=== PATIENT | male | born 1965 | race African-American/Black ===

== ENCOUNTER 2017-11-25 23:57 | Emergency (ER) | payer OTHER ==
[2017-11-26] MEDS ORDERED: Ketorolac INJ* 30 MG/ML 1 ML VIAL IV PUSH ONE (00:30)
[2017-11-26] MEDS ORDERED: oxyCODONE/Acetamin 5/325 MG* TAB PO ONE (00:31)
--- NOTE | 2017-11-26 00:36 | ED ---
Shortness of Breath - HPI Summary HPI Summary: This patient is a 52 year old M presenting to [facility] accompanied by corrections officers with a chief complaint of SOB since 1999. He endorses left shoulder pain, cramping left-neck pain, cramping back pain (makes sitting up difficult), and LUE numbness. He denies CP. He notes the sx have improved since onset. PMHx HTN, anxiety, depression. He denies SHx. - History of Current Complaint Time Seen by Provider: 11/26/17 00:06 Hx Obtained From: Patient Onset/Duration: Sudden Onset, Lasting Hours, Still Present Timing: Constant Current Severity: Mild Dyspnea At: Rest Aggrevating Factors: Nothing Alleviating Factors: Nothing Associated Signs & Symptoms: Negative Related History: Obesity - Allergy/Home Medications Allergies/Adverse Reactions: Allergies Allergy/AdvReac Type Severity Reaction Status Date / Time No Known Allergies Allergy Verified 11/26/17 00:25 Home Medications: Home Medications Hydrochlorothiazide TAB* 25 mg PO DAILY 11/26/17 [History Confirmed 11/26/17] Lipitor 20 MG* 20 mg PO DAILY 11/26/17 [History Confirmed 11/26/17] Lisinopril TAB* 40 mg PO DAILY 11/26/17 [History Confirmed 11/26/17] Lopressor TAB* 50 mg PO DAILY 11/26/17 [History Confirmed 11/26/17] Plaquenil TAB* 11/26/17 [History] Ranitidine TAB (NF) 150 mg PO QPM 11/26/17 [History Confirmed 11/26/17] PMH/Surg Hx/FS Hx/Imm Hx Cardiovascular History: Reports: Hx Hypertension Denies: Hx Pacemaker/ICD GI History: Denies: Hx Ileostomy Sensory History: Denies: Hx Legally Blind, Hx Deafness Opthamlomology History: Denies: Hx Legally Blind EENT History: Denies: Hx Deafness Psychiatric History: Reports: Hx Anxiety, Hx Depression Infectious Disease History: No Infectious Disease History: Denies: Traveled Outside the [place] in Last 30 Days - Family History Known Family History: Negative: Blood Disorder - Social History Occupation: Unemployed Lives: Dormitory/Roommates Alcohol Use: None Substance Use Type: Reports: None Substance Use Comment - Amount & Last Used: pt denies Smoking Status (MU): Heavy Every Day Tobacco Smoker Review of Systems Negative: Fever Positive: Shortness Of Breath Positive: no symptoms reported Positive: Arthralgia - left shoulder, left neck, Myalgia - back, Decreased ROM - back cramping causes difficulty in sitting up Positive: Numbness - LUE All Other Systems Reviewed And Are Negative: Yes Physical Exam - Summary Physical Exam Summary: VITAL SIGNS: Reviewed. GENERAL: Patient is a well-developed and nourished male who is lying comfortable in the stretcher. Patient is not in any acute respiratory distress. HEAD AND FACE: No signs of trauma. No ecchymosis, hematomas or skull depressions. No sinus tenderness. EYES: PERRLA, EOMI x 2, No injected conjunctiva, no nystagmus. EARS: Hearing grossly intact. Ear canals and tympanic membranes are within normal limits. MOUTH: Oropharynx within normal limits. NECK: Supple, trachea is midline, no adenopathy, no JVD, no carotid bruit, no c- spine tenderness, neck with full ROM. CHEST: Symmetric, no tenderness at palpation LUNGS: Clear to auscultation bilaterally. No wheezing or crackles. CVS: Regular rate and rhythm, S1 and S2 present, no murmurs or gallops appreciated. ABDOMEN: Soft, non-tender. No signs of distention. No rebound no guarding, and no masses palpated. Bowel sounds are normal. EXTREMITIES: FROM in all major joints, no edema, no cyanosis or clubbing. NEURO: Alert and oriented x 3. No acute neurological deficits. Speech is normal and follows commands. SKIN: Dry and warm Triage Information Reviewed: Yes Vital Signs On Initial Exam: Initial Vitals Temp Pulse Resp BP Pulse Ox 97.2 F 78 16 139/79 100 11/26/17 00:05 11/26/17 00:05 11/26/17 00:05 11/26/17 00:05 11/26/17 00:05 Vital Signs Reviewed: Yes Diagnostics - Vital Signs Vital Signs Temp Pulse Resp BP Pulse Ox 11/26/17 00:11 78 10 139/79 98 11/26/17 00:10 80 27 98 11/26/17 00:05 97.2 F 78 16 139/79 100 - Laboratory Result Diagrams: 11/26/17 01:38 11/26/17 01:38 Lab Statement: Any lab studies that have been ordered have been reviewed, and results considered in the medical decision making process. - Radiology CXR Xray Interpretation: No Acute Changes Radiology Interpretation Completed By: ED Physician - No acute process. Pending official imaging report. - EKG 0035 Cardiac Rate: NL - 80 EKG Rhythm: Sinus Rhythm ST Segment: Non-Specific - in inferior leads EKG Interpretation: Normal axis. Normal interval. No ischemic changes. Course/Dx - Course Course Of Treatment: A 52-year-old M presents to the ED with a CC of SOB since 1999. (+) LUE numbness, left shoulder pain, left-sided neck cramping, back cramping. (-) CP. PMHx HTN. A CXR was (-). An EKG reveals NSR at 80 BPM with normal axis, normal interval, no ischemic changes, and non-specific T wave changes in the inferior leads. In the ED course, pt was given toradol and percoset. - Diagnoses Provider Diagnoses: Atypical chest pain Discharge - Sign-Out/Discharge Documenting (check all that apply): Patient Departure - discharge - Discharge Plan Condition: Stable Disposition: HOME Patient Education Materials: Chest Pain (ED) Referrals: Nadir ISLAS,Laura Leon [Primary Care Provider] - Additional Instructions: Return to the emergency department for any new or worsening symptoms. I recommend an outpatient stress test as soon as possible. Follow up with your primary care physician in 1-2 days. - Attestation Statements Document Initiated by Scribe: Yes Documenting Scribe: Otto Lagunas Provider For Whom Brooklynn is Documenting (Include Credential): Dr. Santa Manuel MD Scribe Attestation: Otto Newberry, scribed for Dr. Santa Manuel MD on 11/26/17 at 0238.
[2017-11-26 01:49] LABS: ABS Basophils 0.1 10^3/ul (0-0.2); ABS Eosinophils 0.1 10^3/ul (0-0.6); ABS Monocytes 0.4 10^3/ul (0-0.8); ABS Neutrophils 3.2 10^3/ul (1.5-7.7); ABS Nucleated RBC 0 10^3/ul; Eosinophil % 1.6 % (0-6); Hematocrit 42 % (42-52); Mean Corpuscular HGB Conc 33 g/dl (31-36); Mean Corpuscular Hemoglobin 30 pg (27-31); Mean Corpuscular Volume 91 fL (80-94); Mean Platelet Volume 6.9 um3 (7.4-10.4); Nucleated Red Blood Cells % 0.1; Platelet Count 224 10^3/ul (150-450); Red Blood Count 4.61 10^6/ul (4.00-5.40); Red Cell Distribution Width 14 % (10.5-15); White Blood Count 5.8 10^3/ul (3.5-10.8)
[2017-11-26 02:13] LABS: EGFR Non-African American 71.3 (>60)
[2017-11-26 03:13] VITALS: BP 118/69
--- NOTE | 2017-11-26 07:56 | RAD ---
HISTORY: CP COMPARISONS: None VIEWS: 1: frontal AP view of the chest at 12:50 AM FINDINGS: LINES AND TUBES: None. CARDIOMEDIASTINAL SILHOUETTE: The cardiomediastinal silhouette is normal for portable technique. PLEURA: The costophrenic angles are sharp. No pleural abnormalities are noted. LUNG PARENCHYMA: The lung volumes are low. The lungs are clear accounting for the phase of respiration. ABDOMEN: The upper abdomen is clear. There is no subphrenic gas. BONES AND SOFT TISSUES: No bone or soft tissue abnormalities are noted. IMPRESSION: LOW LUNG VOLUMES. NO ACTIVE CARDIOPULMONARY DISEASE. R0
== END 2017-11-26 03:15 | disposition home or self-care (01) ==
LOC: ED 23:57
DX: R07.89 Other chest pain (principal); R06.02 Shortness of breath; E66.9 Obesity, unspecified; M25.512 Pain in left shoulder; F17.210 Nicotine dependence, cigarettes, uncomplicated
CPT/HCPCS: 36415; 71045; 80053; 82550; 83735; 84484; 85025; 86703; 93005; 96374; 99284; A9270-GY; J1885